=== PATIENT | female | born 1985 | race African-American/Black ===

== ENCOUNTER 2019-01-03 00:20 | Emergency (ER) | payer SELFPAY ==
[~2019-01-03] VITALS: Ht 162.6 cm; Wt 108.0 kg
[2019-01-03 00:38] VITALS: BP 175/100
[2019-01-03] MEDS ORDERED: KETOROLAC 30MG/ML VIAL IV SCH (02:00)
[2019-01-03] MEDS ORDERED: AMOXICILLIN 500 MG CAPSULE PO SCH (02:00)
== END 2019-01-03 03:00 | disposition home or self-care (01) ==
LOC: ER 00:20
DX: K08.89 Other specified disorders of teeth and supporting structures (principal); R07.89 Other chest pain; K02.9 Dental caries, unspecified; J45.909 Unspecified asthma, uncomplicated; F14.10 Cocaine abuse, uncomplicated; Z98.890 Other specified postprocedural states
CPT/HCPCS: 71045; 81025; 93005; 96374; 99283; J1885